=== PATIENT | female | born 1985 | race American Indian/Alaskan Native ===

== ENCOUNTER 2017-02-15 21:12 | Emergency (ER) | payer SELFPAY | END 2017-02-15 21:55 | disposition left against medical advice (07) | LOC: ED 21:12 | DX: Z53.21 Procedure and treatment not carried out due to patient leaving prior to being seen by health care provider (principal) ==

== ENCOUNTER 2018-06-19 11:18 | Emergency (ER) | payer OTHER ==
[2018-06-19] MEDS ORDERED: IBUPROFEN PO ONE (13:39)
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
[2018-06-19 15:59] VITALS: BP 107/71
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
== END 2018-06-19 15:50 | disposition home or self-care (01) ==
LOC: ED 11:18
DX: M25.512 Pain in left shoulder (principal); M54.2 Cervicalgia; M79.18 Myalgia, other site; V49.49XA Driver injured in collision with other motor vehicles in traffic accident, initial encounter; Y93.89 Activity, other specified; Y92.488 Other paved roadways as the place of occurrence of the external cause; Y99.8 Other external cause status
CPT/HCPCS: 72040; 99283